=== PATIENT | male | born 1980 | race Caucasian/White ===

== ENCOUNTER 2016-08-03 06:53 | Inpatient (IN) | payer MEDICAID ==
[2016-08-03] MEDS ORDERED: PROMETHAZINE 25 MG/ML VIAL IV STA (07:35)
[2016-08-03] MEDS ORDERED: NS 1,000 ML IV ONE ×2 (07:35→10:41)
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
[2016-08-03 08:22] LABS: ALL NEG? NO
[2016-08-03 08:27] LABS: MPV 10.6 fL (7.4-10.4)
[2016-08-03 08:29] LABS: LEUKOCYTES/URINE NEG (NEGATIVE); NITRITE/URINE NEG (NEGATIVE); RBC/URINE TNTC (0-2); URINE OCCULT BLOOD 2+ (NEG/TRACE)
[2016-08-03 08:36] LABS: MDMA* *POSITIVE* (NEGATIVE); METHAMPHETAMINES *POSITIVE* (NEGATIVE)
[2016-08-03 08:37] LABS: OXYCODONE *POSITIVE* (NEGATIVE)
[2016-08-03 09:02] LABS: SEG NEUTROPHIL 48 % (45-76)
[2016-08-03 09:12] LABS: BLOOD UREA NITROGEN 8 MG/DL (9-20); CALC CORRECTED 10.6 MG/DL (8.4-10.2); CALCIUM 8.8 MG/DL (8.4-10.2); CALCULATED OSMOLALITY 273 MOs/Kg (270-290); CHLORIDE 110 mEq/L (98-107); ETOH-MGDL < 10 mg/dL; GLUCOSE 219 MG/DL (70-99); SODIUM LEVEL 139 mEq/L (137-146); TOTAL PROTEIN 7.6 G/DL (6.3-8.2)
--- NOTE | 2016-08-03 10:36 | DIRPT ---
CLINICAL DATA: Epigastric pain EXAM: US ABDOMEN LIMITED - RIGHT UPPER QUADRANT COMPARISON: 06/18/2016 FINDINGS: Gallbladder: Surgically removed Common bile duct: Diameter: 4.4 mm. Liver: Prominence of the portal triads is noted which may be related to underlying hepatitis correlation with liver function tests is recommended. No other focal abnormality is seen. IMPRESSION: Echogenic appearance to the portal triads which may be related to underlying inflammatory change of the liver. Correlation with laboratory values is recommended. No other focal abnormality is seen. Electronically Signed By: Bam Tatum M.D. On: 08/03/2016 10:33
[2016-08-03] MEDS ORDERED: HYDROmorphone 1 MG INJECTION IV ONE (10:52)
[2016-08-03] MEDS ORDERED: MORPHINE 2 MG/ML INJECTION IV PRN (11:09)
[2016-08-03] MEDS ORDERED: ALBUTEROL 0.083% 3 ML NEB NEB PRN (11:10)
[2016-08-03] MEDS ORDERED: LORAZEPAM 1 MG TAB PO PRN ×3 (11:12)
[2016-08-03] MEDS ORDERED: LORAZEPAM 2 MG/ML VIAL IV PRN ×3 (11:12)
[2016-08-03 11:21] LABS: PARTIAL THROMB. TIME 30.1 SEC (22-35); PT-INR 1.4
[2016-08-03] MEDS ORDERED: Alcohol Withdrawal Scale Orders XX SCH (12:00)
[2016-08-03] MEDS ORDERED: LORAZEPAM 1 MG TAB PO SCH (12:00)
[2016-08-03] MEDS ORDERED: DIATRIZOATE MEGLMINE/SODIUM 30 ML BOTTLE PO ONE (12:04)
--- NOTE | 2016-08-03 12:08 | HISTPHYS ---
- Chief Complaint Abdominal pain - History of Present Illness This is a 35-year-old male with a long history of drug and alcohol abuse who was being admitted to the hospital this morning due to abdominal pain and acute hepatitis. The patient tells me that he has been having abdominal pain for the last day and half, it is in the right upper quadrant, sharp and dull at the same time, without any aggravating or alleviating factors. It does not radiate. Initially the patient denies any IV drug use or any use of illicit substances, but then when I confronted him about his urine tox screen, admits that he was at a [facility] nights ago, where he took many different types of drugs. In fact, he was taken to the [facility] and [place] that evening due to accidental overdose. The patient vehemently denies use of IV drugs, as he says he does not like needles. He says he has never had pain in his abdomen like this ever before. Denies any fevers or chills, cough, shortness of breath. He has some associated nausea but no vomiting. He has been having regular bowel movements, without any blood in the stool. - Medical History Cardiac History: Reports: Hypertension. Denies: Atrial Fibrillation, Syncope GI/ History: Reports: Gastroesophageal Reflux Systemic History: Reports: Diabetes Neurological History: Denies: Seizures Psychological History: Reports: Anxiety. Denies: Depression, Substance Use Disorder - Surgical History Reports: Cholecystectomy, Other (SCROTAL SURGERY FOR "GANGRENE") - Medictions/Allergies Allergies morphine Allergy (Severe, Verified 08/03/16 08:06) Rash-Generalized tramadol Allergy (Severe, Verified 08/03/16 08:06) Rash-Generalized Penicillins Allergy (Verified 08/03/16 08:06) Anaphylaxis* Home Medications Lisinopril 40 mg PO DAILY 09/30/13 Alprazolam [Xanax] 1 mg PO TID 11/15/14 Omeprazole [Prilosec] 40 mg PO BID 11/15/14 Pregabalin [Lyrica] 300 mg PO TID 12/21/14 Buprenorphine HCl/Naloxone HCl [Suboxone SL Film (8 mg/2 mg)] 1 film SL TID Acetaminophen Ex Str Tablet [TYLENOL EXTRA STRENGTH Tablet] 1,500 mg PO .PRN PRN 01/11/17 - Family History Reports: Hypertension (Mother), Diabetes (Mother), Cancer (MGM, MGF, unknown type.), Cardiac Disorders (MGM: [place] at 43 yo.). Denies: Stroke - Social History Smoking Status: Heavy tobacco smoker (5 or more cigarettes/day or daily pipe/ cigar) Social History: Denies: Substance Use Disorder - Review of Systems Yes All systems reviewed and were negative except as marked (And as mentioned in the history of present illness above.) - Physical Exam Vital Signs: Initial Vitals Temperature 98.5 F 08/03/16 07:54 Pulse Rate 115 08/03/16 07:54 Respiratory Rate 18 08/03/16 07:54 Blood Pressure 141/87 08/03/16 07:54 Pulse Oxygen Saturation 94 08/03/16 07:54 Constitutional: Distress Oriented to: Time, Person, Place Exam: male appearing stated age, writhing in pain in a stretcher in the emergency department. - HEENT Head: Normal (normocephalic,atraumatic, trachea midline) Eye: Normal (EOMI, Sclera white) Oropharynx: Normal (moist) Nose: No Symptoms Reported (without discharge or bleeding) Respiratory: Normal - CTA (Clear to auscultation bilaterally, no wheezing,rales or rhonchi. No use of accessory muscles) Cardiovascular: Normal (RRR, no murmurs, rubs or gallops) - GI GI Addtional Findings: Abdomen is soft, with voluntary guarding. He has normoactive bowel sounds. Tender to palpation in the right upper quadrant. - Musculoskeletal Extremities: Normal (normal tone, no cyanosis or edema) - Integumentary Skin: Normal (no rashes or lesions) - Focused CV Perfusion Exam Vital Signs: Last Vital Signs Temp 98.5 F 08/03/16 07:54 Pulse 94 08/03/16 11:38 Resp 18 08/03/16 11:38 BP 141/89 08/03/16 11:38 Pulse Ox 97 08/03/16 11:38 - Lab Results Laboratory Tests 08/03/16 08/03/16 08/03/16 08:01 08:10 08:10 WBC 5.9 Hgb 15.6 Hct 47.2 INR Potassium 4.6 Chloride 110 H BUN 8 L Creatinine 0.80 Total Bilirubin 5.1 H AST 835 H ALT 1110 H Alkaline Phosphatase 228 H Lipase 41 Ur Oxycodone Screen *positive* H Acetaminophen Ur Amphetamines Screen *positive* H U Methamphetamines Scrn *positive* H Urine MDMA Screen *positive* H U Benzodiazepines Scrn *positive* H 08/03/16 08/03/16 08:10 11:20 WBC Hgb Hct INR 1.4 Potassium Chloride BUN Creatinine Total Bilirubin AST ALT Alkaline Phosphatase Lipase Ur Oxycodone Screen Acetaminophen < 10.0 Ur Amphetamines Screen U Methamphetamines Scrn Urine MDMA Screen U Benzodiazepines Scrn - Diagnostic Findings Gallbladder ultrasound done in the emergency department today: Echogenic appearance to the portal triads which may be related to underlying inflammatory change of the liver. Correlation with laboratory values is recommended. No other focal abnormality is seen. - Assessment (1) Acute hepatitis B17.9 - ACUTE VIRAL HEPATITIS, UNSPECIFIED Acute Etiology is unclear. Tylenol level is negative. Not clearly alcoholic hepatitis pattern. Differential includes infectious hepatitis (acute hepatitis panel pending), hypotension, drug abuse, infarction or mass. Note the head CT scan of the abdomen in May without any concerning findings. Will place on CIWA protocol with p.r.n. Ativan in case of withdrawal, will provide aggressive hydration and supportive care. (2) Thrombocytopenia D69.6 - THROMBOCYTOPENIA, UNSPECIFIED Acute (3) Abdominal pain, right upper quadrant R10.11 - RIGHT UPPER QUADRANT PAIN Acute Patient complaining of severe right upper abdominal pain. Gallbladder ultrasound shows hepatic triad with signs of inflammation. No obstruction or evidence of mass lesion. Likely due to his acute hepatitis. Note the patient had laparoscopic cholecystectomy here in 2014. Will obtain CT scan of the abdomen pelvis with IV and p.o. contrast to rule out mass lesion, infectious process, intestinal obstruction, etc. (4) DM w/o complication type II Acute Patient does not seem to be a currently on any oral diabetes medications. Check fingerstick blood glucose q.a.c. and HS, check hemoglobin A1c and add sliding scale insulin as well. (5) GERD (gastroesophageal reflux disease) K21.9 - GASTRO-ESOPHAGEAL REFLUX DISEASE WITHOUT ESOPHAGITIS Acute Continue home PPI. (6) Suicidal ideations R45.851 - SUICIDAL IDEATIONS Acute Patient with a prior history of suicidal ideations, and admitted overdose a couple of days ago, though he claims that this was unintentional. Patient today denies clearly any attempts at self- harm. Denies any suicidal or homicidal ideation. Case Care Discussed with: Patient, Nursing Staff Total Time: 59
[2016-08-03] MEDS: FOLIC ACID 1 MG, THIAMINE 100 MG, VITAMINS, MULTIPLE 10 ML in NS 1,000 ML IV SCH ×4 (12:19)
[2016-08-03] MEDS ORDERED: GLUCOSE (ORAL GEL) 15 GM TUBE PO PRN (12:24)
[2016-08-03] MEDS ORDERED: GLUCAGON 1 MG VIAL SQ PRN (12:24)
[2016-08-03] MEDS ORDERED: DEXTROSE 25 GM/50 ML PFS IV PRN (12:24)
[2016-08-03] MEDS: ONDANSETRON HCL 4 MG/2 ML VIAL IV PRN ×2 (12:30→22:33)
[2016-08-03] MEDS: LORAZEPAM 1 MG TAB PO SCH ×2 (12:32→18:12)
[2016-08-03] MEDS ORDERED: Pharmacy Review for Metformin - IV Contrast Given SCH ×2 (13:00)
[2016-08-03 13:43] VITALS: BMI 37.7
[2016-08-03] MEDS ORDERED: Vaccine Screening Complete SCH (14:00)
[2016-08-03] MEDS: OXYCODONE HCL 5 MG TABLET PO PRN ×2 (14:43→20:17)
--- NOTE | 2016-08-03 15:11 | DIRPT ---
CLINICAL DATA: Right upper quadrant abdominal pain. Nausea. Bloating. Elevated LFTs. EXAM: CT ABDOMEN AND PELVIS WITH CONTRAST TECHNIQUE: Multidetector CT imaging of the abdomen and pelvis was performed using the standard protocol following bolus administration of intravenous contrast. CONTRAST: 80 cc Isovue 370 COMPARISON: 06/18/2016 FINDINGS: Lower chest: No pulmonary nodules, pleural effusions, or infiltrates. Heart size is normal. No imaged pericardial effusion or significant coronary artery calcifications. Upper abdomen: Enlarged caudate lobe of the liver. There is scalloped anterior margin of the left hepatic lobe. There is hyperdense appearance of the posterior aspect of the left hepatic lobe, likely indicating perfusion abnormality. A mass would be difficult to exclude. The spleen is enlarged without focal lesion. Pancreas has a normal appearance. The gallbladder is surgically absent. Trace pneumobilia at the level of the diaphragm. The kidneys are normal in appearance. No hydronephrosis. Adrenal glands are normal. Gastrointestinal tract: The stomach and small bowel loops are normal in appearance. Colonic loops are normal in appearance. The appendix is not well seen. Pelvis: Urinary bladder, seminal vesicles, and prostate gland have a normal appearance. No free pelvic fluid. Retroperitoneum: There numerous enlarged nodes within the upper abdomen. Portacaval lymph node is 2.8 x 4.9 cm. Other periportal lymph nodes are 1.6 x 2.4 cm, 2.0 x 1.9 cm, 1.5 x 3.6 cm. Small gastrohepatic ligaments measure less than 1 cm but are numerous. Small paraesophageal lymph node is 1.2 cm. No evidence for aortic aneurysm. Abdominal wall: Left gynecomastia noted. Osseous structures: No suspicious lytic or blastic lesions are identified. IMPRESSION: 1. Cirrhotic morphology of the liver. 2. Hyperdense portion of the left hepatic lobe, favoring profusion abnormality over mass. Further characterization is needed. MRI liver protocol is recommended. MRI should be performed when the patient is clinically stable and able to follow breath holding instructions (usually best performed on an outpatient basis). 3. Periportal adenopathy. 4. Splenomegaly, indicating portal venous hypertension. 5. Left gynecomastia. Electronically Signed By: Nona Arredondo M.D. On: 08/03/2016 15:08
[2016-08-03] MEDS: ALPRAZOLAM 0.5 MG TAB PO SCH ×2 (15:38→22:44)
[2016-08-03] MEDS: PREGABALIN 100 MG CAP PO SCH ×2 (16:07→20:18)
[2016-08-03] MEDS: REGULAR INSULIN 100 UNITS/ML - 3 ML VIAL SQ SCH (18:11)
[2016-08-03] MEDS: PANTOPRAZOLE 40 MG TAB PO SCH (18:13)
[2016-08-03] MEDS: ENOXAPARIN 40 MG/0.4 ML PFS SQ SCH (18:13)
[2016-08-04] MEDS: NS 1,000 ML IV SCH ×3 (00:53→22:34)
[2016-08-04] MEDS: REGULAR INSULIN 100 UNITS/ML - 3 ML VIAL SQ SCH ×5 (00:54→21:33)
[2016-08-04] MEDS: LORAZEPAM 1 MG TAB PO SCH ×4 (00:55→17:07)
[2016-08-04] MEDS: OXYCODONE HCL 5 MG TABLET PO PRN ×3 (02:31→21:00)
[2016-08-04 05:25] LABS: MPV 10.4 fL (7.4-10.4)
[2016-08-04 05:35] LABS: BLOOD UREA NITROGEN 4 MG/DL (9-20); CALC CORRECTED 9.4 MG/DL (8.4-10.2); CALCIUM 7.9 MG/DL (8.4-10.2); CALCULATED OSMOLALITY 259 MOs/Kg (270-290); CHLORIDE 99 mEq/L (98-107); GLUCOSE 138 MG/DL (70-99); SODIUM LEVEL 135 mEq/L (137-146); TOTAL PROTEIN 6.1 G/DL (6.3-8.2)
[2016-08-04] MEDS: PREGABALIN 100 MG CAP PO SCH ×3 (05:38→21:04)
[2016-08-04] MEDS: PANTOPRAZOLE 40 MG TAB PO SCH ×2 (05:38→17:07)
[2016-08-04] MEDS: ALPRAZOLAM 0.5 MG TAB PO SCH ×3 (05:41→21:04)
[2016-08-04] MEDS ORDERED: PNEUMOCOCCAL 0.5 ML VIAL IM ONE (08:00)
[2016-08-04 08:48] LABS: HEPATITIS B SURFACE AB(IMMUNE) Non Reactive (.)
[2016-08-04] MEDS ORDERED: LISINOPRIL 40 MG TAB PO SCH (09:00)
--- NOTE | 2016-08-04 09:03 | GENMEDPROG ---
Chief Complaint: abdominal pain, acute hepatitis, Nausea & vomiting Currently: Reports: WATTS, Tobacco Use/Hx, Alcohol Hx, Reflux Sx, Abdominal Pain, Ambulating. Denies: Nausea and Vomiting DVT Prophylaxis: Yes - Physical Examination Vital Signs and I&O: Last Vital Signs Temp 98.3 F 08/04/16 07:35 Pulse 97 08/04/16 07:35 Resp 20 08/04/16 07:35 BP 119/67 08/04/16 07:35 Pulse Ox 95 08/04/16 07:35 Oxygen Pulse Oxygen Saturation 95 O2 Device Room Air Oxygen Flow Rate Fraction of Inspired Oxygen ( FIO2) Intake & Output 08/01/16 08/02/16 08/03/16 08/04/16 23:59 23:59 23:59 23:59 Intake Total 2295 1033 Output Total 800 Balance 2295 233 Patient's weight 122.583 kg 124.693 kg General: Alert, Oriented x3, Cooperative, Mild distress, Obese HEENT: Normal, PERRLA, EOMI, Anicteric Sclera, Mucous membr. moist/pink Neck: Full range of motion, Normal Trachea alignment, Normal inspection, No Masses palpable, No Thyromegaly palpable Lymphatics: Normal Respiratory: Normal - CTA (Clear to auscultation bilaterally, no wheezing,rales or rhonchi. No use of accessory muscles) Cardiovascular: Regular rate and rhythm, Normal S1, Normal S2 GI: Normal bowel sounds, Soft, No masses, Obese Extremities/Musculoskeletal: Normal pulses. negative: Edema Skin: Warm,Dry and Intact, Rash, Excoriation Neurological: Normal speech, Strength at 5/5 X4 ext, Normal tone, Cranial nerves 3-12 NL Psych/Mental Status: Agitated Lab/DI/Studies Reviewed: HCV Ab+ Laboratory Tests 08/04/16 08/04/16 04:30 05:41 Sodium 135 L Potassium 3.9 Chloride 99 Carbon Dioxide 30 Anion Gap 10 BUN 4 L Creatinine 0.60 L Estimated GFR (MDRD) > 60 Glucose 138 H POC Capillary Glucose 102 H Calculated Osmolality 259 L Corrected Calcium 9.4 Laboratory Tests 08/04/16 08/04/16 04:30 04:30 WBC 4.2 Hgb 13.4 L D Hct 39.4 L Plt Count 58 L Total Bilirubin 4.2 H AST 737 H ALT 833 H Alkaline Phosphatase 191 H Total Protein 6.1 L Albumin 2.5 L - Assessment (1) Acute hepatitis Acute B17.9 - ACUTE VIRAL HEPATITIS, UNSPECIFIED Comment/Plan: Etiology is unclear. Tylenol level is negative. Not clearly alcoholic hepatitis pattern. Differential includes infectious hepatitis (acute hepatitis panel pending), hypotension, drug abuse, infarction or mass. Note the head CT scan of the abdomen in May without any concerning findings. Will place on CIWA protocol with p.r.n. Ativan in case of withdrawal, will provide aggressive hydration and supportive care. (2) Abdominal pain, right upper quadrant Acute R10.11 - RIGHT UPPER QUADRANT PAIN Comment/Plan: Patient complaining of severe right upper abdominal pain. Gallbladder ultrasound shows hepatic triad with signs of inflammation. No obstruction or evidence of mass lesion. Likely due to his acute hepatitis. Note the patient had laparoscopic cholecystectomy here in 2014. Will obtain CT scan of the abdomen pelvis with IV and p.o. contrast to rule out mass lesion, infectious process, intestinal obstruction, etc. (3) Thrombocytopenia Acute D69.6 - THROMBOCYTOPENIA, UNSPECIFIED (4) DM w/o complication type II Chronic Qualifiers: Diabetes mellitus intermodal customer service insulin use: without detention use Qualified Code(s): E11.9 - Type 2 diabetes mellitus without complications Comment/Plan: Patient does not seem to be a currently on any oral diabetes medications. Check fingerstick blood glucose q.a.c. and HS, check hemoglobin A1c and add sliding scale insulin as well.
[2016-08-04] MEDS: FOLIC ACID 1 MG, THIAMINE 100 MG, VITAMINS, MULTIPLE 10 ML in NS 1,000 ML IV SCH ×4 (12:10)
[2016-08-04] MEDS ORDERED: HYDROmorphone 1 MG INJECTION IV ONE (14:46)
[2016-08-04] MEDS: ENOXAPARIN 40 MG/0.4 ML PFS SQ SCH (17:07)
[2016-08-04] MEDS: HYDROmorphone 1 MG INJECTION IV PRN ×2 (18:18→22:33)
[2016-08-05] MEDS: LORAZEPAM 1 MG TAB PO SCH ×4 (00:04→17:13)
[2016-08-05] MEDS: OXYCODONE HCL 5 MG TABLET PO PRN ×4 (00:05→17:13)
[2016-08-05] MEDS: NICOTINE 21 MG PATCH TOP SCH (01:13)
[2016-08-05] MEDS: ALPRAZOLAM 0.5 MG TAB PO SCH ×3 (05:11→20:45)
[2016-08-05] MEDS: PREGABALIN 100 MG CAP PO SCH ×3 (05:11→20:45)
[2016-08-05] MEDS: PANTOPRAZOLE 40 MG TAB PO SCH ×2 (05:12→17:13)
[2016-08-05] MEDS: REGULAR INSULIN 100 UNITS/ML - 3 ML VIAL SQ SCH ×4 (05:56→22:54)
[2016-08-05 06:08] LABS: AUTOMATED BASOPHIL 1.2 % (0-2); AUTOMATED EOSINOPHIL 8.7 % (0-5); AUTOMATED LYMPH 38.8 % (17-44); AUTOMATED MONOCYTE 9.9 % (3-10); AUTOMATED NEUTROPHIL 41.4 % (45-76); MPV 10.7 fL (7.4-10.4)
[2016-08-05] MEDS: HYDROmorphone 1 MG INJECTION IV PRN ×3 (06:20→15:01)
[2016-08-05 06:47] LABS: BLOOD UREA NITROGEN 6 MG/DL (9-20); CALC CORRECTED 9.1 MG/DL (8.4-10.2); CALCULATED OSMOLALITY 261 MOs/Kg (270-290); CHLORIDE 96 mEq/L (98-107); GLUCOSE 125 MG/DL (70-99); SODIUM LEVEL 136 mEq/L (137-146); TOTAL PROTEIN 6.6 G/DL (6.3-8.2)
[2016-08-05] MEDS ORDERED: CEFOXITIN 2 GM in D5W 100 ML IV SCH ×2 (10:00→18:00)
[2016-08-05] MEDS: METOPROLOL TARTRATE 25 MG TAB PO SCH ×2 (10:20→20:38)
[2016-08-05] MEDS: NS 1,000 ML IV SCH ×2 (11:28→20:35)
[2016-08-05] MEDS: FOLIC ACID 1 MG, THIAMINE 100 MG, VITAMINS, MULTIPLE 10 ML in NS 1,000 ML IV SCH ×4 (11:28)
--- NOTE | 2016-08-05 16:14 | GENMEDPROG ---
Chief Complaint: viral hepatitis, t-penia, RUQ pain, DM-2 Subjective Note: Patient frequently requests pain medication, even when awakened from sleep and quite lethargic. Very dramatic. Current Medication List: Reviewed Currently: Reports: WATTS, Tobacco Use/Hx, Alcohol Hx, Reflux Sx, Abdominal Pain, Ambulating. Denies: Nausea and Vomiting DVT Prophylaxis: Yes - Physical Examination Vital Signs and I&O: Last Vital Signs Temp 98.9 F 08/05/16 06:45 Pulse 90 08/05/16 08:27 Resp 20 08/05/16 06:45 BP 145/82 08/05/16 08:27 Pulse Ox 97 08/05/16 06:45 Oxygen Pulse Oxygen Saturation 97 O2 Device Room Air Oxygen Flow Rate Fraction of Inspired Oxygen ( FIO2) Intake & Output 08/02/16 08/03/16 08/04/16 08/05/16 23:59 23:59 23:59 23:59 Intake Total 2295 9954 1755 Output Total 1400 850 Balance 2295 1984 905 Patient's weight 122.583 kg 124.693 kg 124.647 kg General: Alert, Oriented x3, Cooperative, Mild distress, Obese HEENT: Normal, PERRLA, EOMI, Anicteric Sclera, Mucous membr. moist/pink Neck: Full range of motion, Normal Trachea alignment, Normal inspection, No Masses palpable, No Thyromegaly palpable Lymphatics: Normal Respiratory: Normal - CTA (Clear to auscultation bilaterally, no wheezing,rales or rhonchi. No use of accessory muscles) Cardiovascular: Regular rate and rhythm, Normal S1, Normal S2 GI: Normal bowel sounds, Soft, No masses, Obese Extremities/Musculoskeletal: Normal pulses. negative: Edema Skin: Warm,Dry and Intact, Rash, Excoriation Neurological: Normal speech, Strength at 5/5 X4 ext, Normal tone, Cranial nerves 3-12 NL Psych/Mental Status: Agitated Lab/DI/Studies Reviewed: Laboratory Tests 08/05/16 08/05/16 08/05/16 05:10 05:10 09:00 WBC 5.5 Hgb 13.8 L Hct 40.2 L Plt Count 65 L Neut % (Auto) 41.4 L Lymph % (Auto) 38.8 Barry % (Auto) 9.9 Sodium 136 L Potassium 4.7 Chloride 96 L Carbon Dioxide 32 Anion Gap 13 BUN 6 L Creatinine 0.70 Estimated GFR (MDRD) > 60 Glucose 125 H POC Capillary Glucose Calculated Osmolality 261 L Corrected Calcium 9.1 Total Bilirubin 3.9 H AST 529 H ALT 653 H Alkaline Phosphatase 221 H Ammonia Total Protein 6.6 Albumin 2.9 L Acetaminophen < 10.0 08/05/16 08/05/16 08/05/16 09:00 11:40 16:39 WBC Hgb Hct Plt Count Neut % (Auto) Lymph % (Auto) Barry % (Auto) Sodium Potassium Chloride Carbon Dioxide Anion Gap BUN Creatinine Estimated GFR (MDRD) Glucose POC Capillary Glucose 152 H 178 H Calculated Osmolality Corrected Calcium Total Bilirubin AST ALT Alkaline Phosphatase Ammonia 27.0 Total Protein Albumin Acetaminophen 08/05/16 21:18 WBC Hgb Hct Plt Count Neut % (Auto) Lymph % (Auto) Barry % (Auto) Sodium Potassium Chloride Carbon Dioxide Anion Gap BUN Creatinine Estimated GFR (MDRD) Glucose POC Capillary Glucose 173 H Calculated Osmolality Corrected Calcium Total Bilirubin AST ALT Alkaline Phosphatase Ammonia Total Protein Albumin Acetaminophen - Assessment (1) Acute hepatitis Acute B17.9 - ACUTE VIRAL HEPATITIS, UNSPECIFIED Comment/Plan: Etiology is unclear. Tylenol level is negative. Not clearly alcoholic hepatitis pattern. Differential includes infectious hepatitis (acute hepatitis panel pending), hypotension, drug abuse, infarction or mass. Note the head CT scan of the abdomen in May without any concerning findings. Will place on CIWA protocol with p.r.n. Ativan in case of withdrawal, will provide aggressive hydration and supportive care. (2) Abdominal pain, right upper quadrant Acute R10.11 - RIGHT UPPER QUADRANT PAIN Comment/Plan: Patient complaining of severe right upper abdominal pain. Gallbladder ultrasound shows hepatic triad with signs of inflammation. No obstruction or evidence of mass lesion. Likely due to his acute hepatitis. Note the patient had laparoscopic cholecystectomy here in 2014. Will obtain CT scan of the abdomen pelvis with IV and p.o. contrast to rule out mass lesion, infectious process, intestinal obstruction, etc. (3) Thrombocytopenia Acute D69.6 - THROMBOCYTOPENIA, UNSPECIFIED (4) DM w/o complication type II Chronic Qualifiers: Diabetes mellitus intermission coordinator insulin use: without prison use Qualified Code(s): E11.9 - Type 2 diabetes mellitus without complications Comment/Plan: Patient does not seem to be a currently on any oral diabetes medications. Check fingerstick blood glucose q.a.c. and HS, check hemoglobin A1c and add sliding scale insulin as well. Case Care Discussed with: Patient, Consultants, Nursing Staff, Resource Management Education/Counseling Given To: Patient Education/Counseling Given Regarding: Diagnosis, Treatment, Prognosis Total Time: 25 min Critical Care: No Couseling Time (>50% in counseling/coordination): Yes Code: 98043 (12+)
[2016-08-05] MEDS: CEFOXITIN 2 GM in D5W 100 ML IV SCH (17:13)
[2016-08-05] MEDS: ENOXAPARIN 40 MG/0.4 ML PFS SQ SCH (17:13)
--- NOTE | 2016-08-05 17:18 | PCM.CONSGI ---
Consult Date: 08/05/16 Consult Requesting Physician: Joann Starr Consult Reason: Abdominal Pain, Abnormal Liver Function - History of Present Illness 35-year-old white male with longstanding history of alcohol abuse, cocaine and polysubstance abuse (denies IV drugs), tattoos admitted with acute on chronic abdominal pain. He underwent CT scan of the abdomen and pelvis which showed evidence of liver cirrhosis with questionable abnormality in the left lobe of the liver. It was recommended to get MRI of the liver performed as an outpatient. The CT scan of the abdomen pelvis did show evidence of splenomegaly, no ascites or any intra-abdominal varices. Patient had positive urine tox screen as below. From the chart: "Initially the patient denies any IV drug use or any use of illicit substances, but then when I confronted him about his urine tox screen, admits that he was at a [employer] [place] nights ago, where he took many different types of drugs. In fact, he was taken to the [facility] and [place] that evening due to accidental overdose. The patient vehemently denies use of IV drugs, as he says he does not like needles. He says he has never had pain in his abdomen like this ever before. Denies any fevers or chills, cough, shortness of breath. He has some associated nausea but no vomiting. He has been having regular bowel movements, without any blood in the stool." To my exam he was little confused. He was sleeping and snoring quite loudly. When he woke up, he did not have any abdominal pain. Then during the history taking, he again started having abdominal pain which was more subjective. He wanted me to give him pain medications. - Past Medical History Cardiac History: Reports: Hypertension Respiratory History: Reports: Other (Sleep apnea) GI/ History: Reports: GERD, Other (Obesity) Systemic History: Reports: Diabetes Psychological History: Reports: Anxiety, Depression, Substance Use Disorder (hx of dug and alcohol abuse) - Surgical History Past Surgical History: Reports: Cholecystectomy. Denies: Back Surgery - Family History Family History: Reports: Diabetes (Mother), Cardiac Disorders (MGM: MS at 44 yo. ), Cancer (MGM, MGF, unknown type.), Hepatitis, Hypertension (Mother). Denies: Seizures, Stroke Family Medical History Additional Findings: Mother had hepatitis C and liver cirrhosis - Allergies Allergies morphine Allergy (Severe, Verified 08/03/16 13:28) Rash-Generalized tramadol Allergy (Severe, Verified 08/03/16 13:28) Rash-Generalized Penicillins Allergy (Verified 08/03/16 13:28) Anaphylaxis* - Medications Home Medications Lisinopril 40 mg PO DAILY 09/30/13 Alprazolam [Xanax] 1 mg PO TID 11/15/14 Omeprazole [Prilosec] 40 mg PO BID 11/15/14 Pregabalin [Lyrica] 300 mg PO TID 12/21/14 Buprenorphine HCl/Naloxone HCl [Suboxone SL Film (8 mg/2 mg)] 1 film SL TID Acetaminophen Ex Str Tablet [TYLENOL EXTRA STRENGTH Tablet] 1,500 mg PO .PRN PRN 08/03/16 - Social History Smoking Status: Heavy tobacco smoker (5 or more cigarettes/day or daily pipe/ cigar) Social History: Reports: Substance Use Disorder (hx of dug and alcohol abuse) - Review of Systems Constitutional: Other (No night sweats.). negative: Chills, Fever, Weight loss (Recent) Mouth: negative: Pain Cardiovascular: negative: Chest Pain, Orthopnea, PND Gastrointestinal: Other (Positive for jaundice) Genitourinary: Other (Denies polyuria.). negative: Dysuria Neurological: Other (Denies loss of consciousness.). negative: Seizure Allergic/Immunologic: negative: Hives, Itching Hematologic: negative: Easy Bruising - Exam Vital Signs: Temperature: 98.9 F (08/05/16 06:45) HR: 90 (08/05/16 08:27) RR: 20 (08/05/16 06:45) BP: 145/82 (08/05/16 08:27) Pulse Ox: 97 (08/05/16 06:45) General: Alert, Oriented x3, Cooperative, No acute distress HEENT: Normal, Icteric Sclera, Other (No Jaundice). negative: Pallor Cardiovascular: Normal S1, Normal S2, Other (No S3 or S4.). negative: No murmurs Gastrointestinal: Soft, Bowel Sounds (normal), Other (No ascites.). negative: Tender, Guarding, Rigid, Hepatosplenomegaly Extremities: Normal pulses. negative: Swelling, Edema Skin: Warm,Dry and Intact Neurological: Normal speech, Other (No focal neurologic deficits.) Psych/Mental Status: Normal Affect, Cooperative - Labs Result Diagrams: 08/05/16 05:10 08/05/16 05:10 Laboratory Tests 08/03/16 08/03/16 08/03/16 08:01 08:10 08:10 WBC 5.9 Hgb 15.6 MCV 90 Plt Count 80 L PT 14.4 H INR 1.4 APTT 30.1 Sodium Potassium Chloride Carbon Dioxide Anion Gap BUN Creatinine Estimated GFR (MDRD) Glucose Calculated Osmolality Calcium Corrected Calcium Total Bilirubin AST ALT Alkaline Phosphatase Ammonia Total Protein Albumin Ur Oxycodone Screen *positive* H Acetaminophen Ur Amphetamines Screen *positive* H U Methamphetamines Scrn *positive* H Urine MDMA Screen *positive* H U Benzodiazepines Scrn *positive* H Hep Bs Antibody Hepatitis C Antibody 08/03/16 08/03/16 08/04/16 11:20 11:20 04:30 WBC 4.2 Hgb 13.4 L D MCV 89 Plt Count 58 L PT INR APTT Sodium Potassium Chloride Carbon Dioxide Anion Gap BUN Creatinine Estimated GFR (MDRD) Glucose Calculated Osmolality Calcium Corrected Calcium Total Bilirubin AST ALT Alkaline Phosphatase Ammonia Total Protein Albumin Ur Oxycodone Screen Acetaminophen < 10.0 Ur Amphetamines Screen U Methamphetamines Scrn Urine MDMA Screen U Benzodiazepines Scrn Hep Bs Antibody Non reactive Hepatitis C Antibody 2.7 H 08/04/16 08/05/16 08/05/16 04:30 05:10 05:10 WBC 5.5 Hgb 13.8 L MCV 88 Plt Count 65 L PT INR APTT Sodium 135 L 136 L Potassium 3.9 4.7 Chloride 99 96 L Carbon Dioxide 30 32 Anion Gap 10 13 BUN 4 L 6 L Creatinine 0.60 L 0.70 Estimated GFR (MDRD) > 60 Glucose 138 H 125 H Calculated Osmolality 261 L Calcium 8.0 L Corrected Calcium 9.1 Total Bilirubin 4.2 H 3.9 H AST 737 H 529 H ALT 833 H 653 H Alkaline Phosphatase 191 H 221 H Ammonia Total Protein 6.1 L 6.6 Albumin 2.5 L 2.9 L Ur Oxycodone Screen Acetaminophen Ur Amphetamines Screen U Methamphetamines Scrn Urine MDMA Screen U Benzodiazepines Scrn Hep Bs Antibody Hepatitis C Antibody 08/05/16 09:00 WBC Hgb MCV Plt Count PT INR APTT Sodium Potassium Chloride Carbon Dioxide Anion Gap BUN Creatinine Estimated GFR (MDRD) Glucose Calculated Osmolality Calcium Corrected Calcium Total Bilirubin AST ALT Alkaline Phosphatase Ammonia 27.0 Total Protein Albumin Ur Oxycodone Screen Acetaminophen Ur Amphetamines Screen U Methamphetamines Scrn Urine MDMA Screen U Benzodiazepines Scrn Hep Bs Antibody Hepatitis C Antibody Exam(s): [id number] CT/CT ABD-PELV W/IV CM CLINICAL DATA: Right upper quadrant abdominal pain. Nausea. Bloating. Elevated LFTs. EXAM: CT ABDOMEN AND PELVIS WITH CONTRAST TECHNIQUE: Multidetector CT imaging of the abdomen and pelvis was performed using the standard protocol following bolus administration of intravenous contrast. CONTRAST: 80 cc Isovue 370 COMPARISON: 06/18/2016 FINDINGS: Lower chest: No pulmonary nodules, pleural effusions, or infiltrates. Heart size is normal. No imaged pericardial effusion or significant coronary artery calcifications. Upper abdomen: Enlarged caudate lobe of the liver. There is scalloped anterior margin of the left hepatic lobe. There is hyperdense appearance of the posterior aspect of the left hepatic lobe, likely indicating perfusion abnormality. A mass would be difficult to exclude. The spleen is enlarged without focal lesion. Pancreas has a normal appearance. The gallbladder is surgically absent. Trace pneumobilia at the level of the diaphragm. The kidneys are normal in appearance. No hydronephrosis. Adrenal glands are normal. Gastrointestinal tract: The stomach and small bowel loops are normal in appearance. Colonic loops are normal in appearance. The appendix is not well seen. Pelvis: Urinary bladder, seminal vesicles, and prostate gland have a normal appearance. No free pelvic fluid. Retroperitoneum: There numerous enlarged nodes within the upper abdomen. Portacaval lymph node is 2.8 x 4.9 cm. Other periportal lymph nodes are 1.6 x 2.4 cm, 2.0 x 1.9 cm, 1.5 x 3.6 cm. Small gastrohepatic ligaments measure less than 1 cm but are numerous. Small paraesophageal lymph node is 1.2 cm. No evidence for aortic aneurysm. Abdominal wall: Left gynecomastia noted. Osseous structures: No suspicious lytic or blastic lesions are identified. IMPRESSION: 1. Cirrhotic morphology of the liver. 2. Hyperdense portion of the left hepatic lobe, favoring profusion abnormality over mass. Further characterization is needed. MRI liver protocol is recommended. MRI should be performed when the patient is clinically stable and able to follow breath holding instructions (usually best performed on an outpatient basis). 3. Periportal adenopathy. 4. Splenomegaly, indicating portal venous hypertension. 5. Left gynecomastia. - Assessment and Plan (1) Liver cirrhosis, alcoholic Acute K70.30 - ALCOHOLIC CIRRHOSIS OF LIVER WITHOUT ASCITES Comment: Due to alcohol abuse, possibly associated hepatitis C, uncontrolled diabetes, obesity. This is complicated by portal hypertension with splenomegaly, hypersplenism, coagulopathy. There is no definite evidence of ascites on the CT. CURRENTLY ACUTE ON CHRONIC LIVER DISEASE LIKELY DUE TO ALCOHOL BINGEING. His albumin is 2.9. He is also jaundiced (2) Hepatic encephalopathy Acute K72.90 - HEPATIC FAILURE, UNSPECIFIED WITHOUT COMA (3) DM w/o complication type II Chronic without intermediate designer use E11.9 - Type 2 diabetes mellitus without complications (4) Obstructive sleep apnea Suspected G47.33 - OBSTRUCTIVE SLEEP APNEA (ADULT) (PEDIATRIC) (5) Chronic abdominal pain Acute R10.9 - UNSPECIFIED ABDOMINAL PAIN; G89.29 - OTHER CHRONIC PAIN Comment: No definite etiology. His abdominal examination was unremarkable except for hepatomegaly. CT scan of the abdomen pelvis was unremarkable for etiology of abdominal pain. During my examination, when the patient was distracted he did not have any significant abdominal pain or tenderness. I do believe that there is some degree of narcotic seeking behavior. I have reviewed the CT scan. I have also reviewed his urine tox screen. Recommendations: 1. stop drinking all alcohol. 2. START LACTULOSE 30 CC P.O. B.I.D. ALSO START RIFAXIMIN 550 MG P.O. B.I.D. 3. HE WOULD NEED MRI OF THE LIVER AN OUTPATIENT GIVEN THAT HE HAS ABNORMALITIES IN THE LEFT LOBE OF THE LIVER. WE NEED TO RULE OUT HEPATOMA. 4. CHECK HEPATITIS C QUANTIPLEX AND GENOTYPE, AFP. 5. WOULD RECOMMEND TO HOLD OFF ON ANY NARCOTICS THESE MAY MAKE HEPATIC ENCEPHALOPATHY WORSE. ALSO I BELIEVE HE WILL GO THROUGH WITHDRAWAL. HE WOULD NEED A REFERRAL TO [facility] WITH LIVER TRANSPLANT CAPABILITIES IF HE DEMONSTRATES NO ALCOHOL OR DRUG ABUSE FOR AT LEAST 3-6 MONTHS. 6. IF HE CONTINUES TO ABUSE ALCOHOL AND DRUGS, HE HAS A VERY POOR LIKELY FATAL PROGNOSIS. 7. Need to follow up as an outpatient in the GI clinic to set up for MRI of the liver as recommended by Radiology.
[2016-08-05] MEDS: LACTULOSE 20 GM/30 ML ORAL SOLN PO SCH (20:37)
[2016-08-05] MEDS: RIFAXIMIN 550 MG TAB PO SCH (20:38)
[2016-08-06] MEDS: LORAZEPAM 1 MG TAB PO SCH ×2 (00:56→04:51)
[2016-08-06] MEDS: CEFOXITIN 2 GM in D5W 100 ML IV SCH ×3 (00:57→11:07)
[2016-08-06] MEDS: NICOTINE 21 MG PATCH TOP SCH (01:00)
[2016-08-06] MEDS: HYDROmorphone 1 MG INJECTION IV PRN (04:41)
[2016-08-06] MEDS: PREGABALIN 100 MG CAP PO SCH ×2 (04:51→13:37)
[2016-08-06] MEDS: ALPRAZOLAM 0.5 MG TAB PO SCH ×2 (04:51→13:36)
[2016-08-06] MEDS: PANTOPRAZOLE 40 MG TAB PO SCH (04:52)
[2016-08-06] MEDS: REGULAR INSULIN 100 UNITS/ML - 3 ML VIAL SQ SCH ×3 (05:31→17:26)
[2016-08-06] MEDS: OXYCODONE HCL 5 MG TABLET PO PRN ×2 (07:57→12:08)
[2016-08-06] MEDS: LACTULOSE 20 GM/30 ML ORAL SOLN PO SCH (08:00)
[2016-08-06] MEDS: RIFAXIMIN 550 MG TAB PO SCH (08:00)
[2016-08-06] MEDS: METOPROLOL TARTRATE 25 MG TAB PO SCH (08:05)
[2016-08-06 09:25] LABS: MPV 10.7 fL (7.4-10.4)
[2016-08-06 09:29] LABS: BLOOD UREA NITROGEN 6 MG/DL (9-20); CALC CORRECTED 9.2 MG/DL (8.4-10.2); CALCIUM 8.2 MG/DL (8.4-10.2); CALCULATED OSMOLALITY 264 MOs/Kg (270-290); CHLORIDE 99 mEq/L (98-107); GLUCOSE 274 MG/DL (70-99); SODIUM LEVEL 133 mEq/L (137-146); TOTAL PROTEIN 6.7 G/DL (6.3-8.2)
--- NOTE | 2016-08-06 09:55 | GENMEDPROG ---
Chief Complaint: acute hepatitis, N & V, abdominal pain, drug abuse, HCV, DM-2 Currently: Reports: WATTS, Tobacco Use/Hx, Alcohol Hx, Reflux Sx, Abdominal Pain, Ambulating. Denies: Nausea and Vomiting DVT Prophylaxis: Yes - Physical Examination Vital Signs and I&O: Last Vital Signs Temp 99.9 F 08/06/16 08:58 Pulse 87 08/06/16 08:58 Resp 20 08/06/16 08:58 BP 141/76 08/06/16 08:58 Pulse Ox 97 08/06/16 08:58 Oxygen Pulse Oxygen Saturation 97 O2 Device Room Air Oxygen Flow Rate Fraction of Inspired Oxygen ( FIO2) Intake & Output 08/03/16 08/04/16 08/05/16 08/06/16 23:59 23:59 23:59 23:59 Intake Total 2295 3384 2585 1203 Output Total 1400 4050 1500 Balance 2295 3100 -0511 -010 Patient's weight 122.583 kg 124.693 kg 124.647 kg 125.248 kg General: Alert, Oriented x3, Cooperative, Mild distress, Obese HEENT: Normal, PERRLA, EOMI, Anicteric Sclera, Mucous membr. moist/pink Neck: Full range of motion, Normal Trachea alignment, Normal inspection, No Masses palpable, No Thyromegaly palpable Lymphatics: Normal Respiratory: Normal - CTA (Clear to auscultation bilaterally, no wheezing,rales or rhonchi. No use of accessory muscles) Cardiovascular: Regular rate and rhythm, Normal S1, Normal S2 GI: Normal bowel sounds, Soft, No masses, Obese Extremities/Musculoskeletal: Normal pulses. negative: Edema Skin: Warm,Dry and Intact, Rash, Excoriation Neurological: Normal speech, Strength at 5/5 X4 ext, Normal tone, Cranial nerves 3-12 NL Psych/Mental Status: Agitated - Assessment (1) Acute hepatitis Acute B17.9 - ACUTE VIRAL HEPATITIS, UNSPECIFIED Comment/Plan: Etiology is unclear. Tylenol level is negative. Not clearly alcoholic hepatitis pattern. Differential includes infectious hepatitis (acute hepatitis panel pending), hypotension, drug abuse, infarction or mass. Note the head CT scan of the abdomen in May without any concerning findings. Will place on CIWA protocol with p.r.n. Ativan in case of withdrawal, will provide aggressive hydration and supportive care. (2) Abdominal pain, right upper quadrant Acute R10.11 - RIGHT UPPER QUADRANT PAIN Comment/Plan: Patient complaining of severe right upper abdominal pain. Gallbladder ultrasound shows hepatic triad with signs of inflammation. No obstruction or evidence of mass lesion. Likely due to his acute hepatitis. Note the patient had laparoscopic cholecystectomy here in 2014. Will obtain CT scan of the abdomen pelvis with IV and p.o. contrast to rule out mass lesion, infectious process, intestinal obstruction, etc. (3) Thrombocytopenia Acute D69.6 - THROMBOCYTOPENIA, UNSPECIFIED (4) DM w/o complication type II Chronic Qualifiers: Diabetes mellitus usp insulin use: without terminal supervisor use Qualified Code(s): E11.9 - Type 2 diabetes mellitus without complications Comment/Plan: Patient does not seem to be a currently on any oral diabetes medications. Check fingerstick blood glucose q.a.c. and HS, check hemoglobin A1c and add sliding scale insulin as well.
[2016-08-06] MEDS: NS 1,000 ML IV SCH (11:05)
[2016-08-06] MEDS ORDERED: VITAMINS,PRENATAL TABLET PO SCH (12:00)
[2016-08-06] MEDS ORDERED: THIAMINE 100 MG TAB PO SCH (12:00)
--- NOTE | 2016-08-06 12:14 | PCM.GIPROG ---
Progress Note (GI) Chief Complaint: The liver function tests are improving gradually and so is the jaundice. He still has abdominal pain- subjective symptoms out with the objective findings. He denies having any significant nausea or vomiting. He has been tolerating lactulose. The ammonia is gradually coming down. There are no signs or symptoms of any active bleeding. - Physical Exam Vital Signs: Temperature: 99.9 F (08/06/16 08:58) HR: 87 (08/06/16 08:58) RR: 20 (08/06/16 08:58) BP: 141/76 (08/06/16 08:58) Pulse Ox: 97 (08/06/16 08:58) General: Alert, Oriented x3, Cooperative, No acute distress HEENT: Normal, Other (No Jaundice). negative: Pallor Cardiovascular: Normal S1, Normal S2, Other (No S3 or S4.). negative: No murmurs Gastrointestinal: Soft, Bowel Sounds (Normal), Tender, Guarding (voluanrty), Hepatosplenomegaly, Other (No ascites.) Extremities: Normal pulses. negative: Swelling, Edema Skin: Warm,Dry and Intact Neurological: Normal speech, Other (No focal neurologic deficits.) Psych/Mental Status: Normal Affect, Cooperative Result Diagrams: 08/06/16 09:04 08/06/16 09:04 - Impression and Plan (1) Liver cirrhosis, alcoholic Acute K70.30 - ALCOHOLIC CIRRHOSIS OF LIVER WITHOUT ASCITES without ascites K70.30 - Alcoholic cirrhosis of liver without ascites (2) Hepatic encephalopathy Acute K72.90 - HEPATIC FAILURE, UNSPECIFIED WITHOUT COMA (3) DM w/o complication type II Chronic without fpc use E11.9 - Type 2 diabetes mellitus without complications Comment: Patient does not seem to be a currently on any oral diabetes medications. Check fingerstick blood glucose q.a.c. and HS, check hemoglobin A1c and add sliding scale insulin as well. (4) Obstructive sleep apnea Suspected G47.33 - OBSTRUCTIVE SLEEP APNEA (ADULT) (PEDIATRIC) Comment: Patient reports snoring and waking up q 15 min at home. Patient is obese. Has very large tonsils and large neck circumference. Plan: will order oxgyen, incentive spirometry. Recommend that primary care provider consider testing for NIRU as an outpatient. (5) Chronic abdominal pain Acute R10.9 - UNSPECIFIED ABDOMINAL PAIN; G89.29 - OTHER CHRONIC PAIN Plan: 1. continue to monitor liver function tests. The gradually coming down. 2. Stop drinking all alcohol 3. Ambulate 4. I have again explained to the patient that we would like to hold off on any pain medications as there may be detrimental. 5. Will follow along. Addendum: Alpha-fetoprotein was normal. Still as per radiology's recommendations, he would need an MRI of the liver as an outpatient. We need to set up an appointment for MRI of the liver at discharge so that he does not fall through the cracks and may not show up as an outpatient for follow-up visits. He has assured me that he would follow up as an outpatient on a regular basis.
--- NOTE | 2016-08-06 16:05 | PCM.DCS92 ---
- Final/Secondary Discharge Diagnosis (1) Acute hepatitis Acute B17.9 - ACUTE VIRAL HEPATITIS, UNSPECIFIED Present on Admission: Yes Comment: Etiology is unclear. Tylenol level is negative. However urine drug screeen is positive for multiple substances of abuse. Not clearly alcoholic hepatitis pattern. Differential includes infectious hepatitis (acute hepatitis panel pending), hypotension, drug abuse, infarction or mass. (Note that he had CT scan of the abdomen in May without any concerning findings. ) Feel that drug/alcohol abuse is most likely etiology. Will place on CIWA protocol with p.r.n. Ativan in case of withdrawal, will provide aggressive hydration and supportive care. (2) Abdominal pain, right upper quadrant Acute R10.11 - RIGHT UPPER QUADRANT PAIN Present on Admission: Yes Comment: Patient complaining of severe right upper abdominal pain. Gallbladder ultrasound shows hepatic triad with signs of inflammation. No obstruction or evidence of mass lesion. Likely due to his acute hepatitis. Note the patient had laparoscopic cholecystectomy here in 2014. Most likely due to his substance abuse. Drug screen is positive for multiple illegal substances. (3) Thrombocytopenia Acute D69.6 - THROMBOCYTOPENIA, UNSPECIFIED Present on Admission: Yes Comment: gradually improving - up to 90K now (4) DM w/o complication type II Chronic Present on Admission: Yes without bed bug exterminator use E11.9 - Type 2 diabetes mellitus without complications Comment: Patient does not seem to be a currently on any oral diabetes medications. Check fingerstick blood glucose q.a.c. and HS, check hemoglobin A1c and add sliding scale insulin as well. Advised of need for change in lifestyle, diet and exercise routine. Encouraged close follow-up with PCP. (5) Substance abuse Acute F19.10 - OTHER PSYCHOACTIVE SUBSTANCE ABUSE, UNCOMPLICATED Present on Admission: Yes Comment: Counselled on need for lifestyle changes, patient is HCV +. LFT's are gradually improving, should continue to do so if he continues to abstain from illegal substances and drinks plenty of water. Avoid friends /associates who use illegal drugs. Assistance for addiction is available through [facility]. (6) Tobacco abuse disorder Chronic Z72.0 - TOBACCO USE Present on Admission: Yes Comment: Counselled on importance of smoking cessation. Encouraged alternative form of nicotine: patch, gum, or vapor. (7) Hep C w/o coma, chronic Chronic B18.2 - CHRONIC VIRAL HEPATITIS C Present on Admission: Yes Comment: Patient found to have + serology for HCV. Informed of same. Discharge Disposition: Home Discharge Condition: Stable Cognitive Discharge Status: Unimpaired Fuctional Discharge Status: Independent Physician Follow up/Referrals: Chase Briscoe MD [Primary Care Provider] - One Week Chencho Morataya MD [Staff Provider No Admit] - 3-4 Days New Prescriptions: Cephalexin Monohydrate [Keflex] 500 mg PO BID #20 cap Lactulose [Cephulac] 20 gm PO BID #1800 udc Metoprolol Tartrate [Lopressor] 25 mg PO BID #60 tablet Rifaximin [Xifaxan] 550 mg PO BID #60 tablet Thiamine [Thiamine, Vitamin B-1] 100 mg PO DAILY@1200 #100 tablet Vitamins, [ Vitamin] 1 tab PO DAILY@1200 #100 tablet Discharge Home Medication List Alprazolam [Xanax] 1 mg PO TID 11/15/14 [History Confirmed 08/03/16 Last Taken 08/02/16] Omeprazole [Prilosec] 40 mg PO BID 11/15/14 [History Confirmed 08/03/16 Last Taken 08/02/16] Pregabalin [Lyrica] 300 mg PO TID 12/21/14 [History Confirmed 08/03/16 Last Taken 08/03/16 01:00] Buprenorphine HCl/Naloxone HCl [Suboxone SL Film (8 mg/2 mg)] 1 film SL TID [History Confirmed 08/03/16 Last Taken 08/02/16] Acetaminophen Ex Str Tablet [TYLENOL EXTRA STRENGTH Tablet] 1,500 mg PO .PRN PRN 08/03/16 [History Confirmed 08/03/16 Last Taken 08/03/16 01:00] Lactulose [Cephulac] 20 gm PO BID #1800 udc 08/06/16 [Rx Last Taken Unknown] Metoprolol Tartrate [Lopressor] 25 mg PO BID #60 tablet 08/06/16 [Rx Last Taken Unknown] Nicotine [Nicoderm] 21 mg TOP Q24H #30 pat 08/06/16 [Rx Last Taken Unknown] Rifaximin [Xifaxan] 550 mg PO BID #60 tablet 08/06/16 [Rx Last Taken Unknown] Thiamine [Thiamine, Vitamin B-1] 100 mg PO DAILY@1200 #100 tablet 08/06/16 [Rx Last Taken Unknown] Vitamins, [ Vitamin] 1 tab PO DAILY@1200 #100 tablet 08/06/16 [ Rx Last Taken Unknown] O2 Device: Room Air Additional Instructions: finger guard to L index finger x 2 weeks; Keflex for infection; keep wound clean and dry Diet at Discharge: Heart Healthy, Low Salt, Diabetic, 1800 Calorie Activity: As Tolerated Call Office For: Worsening Symptoms Discontinue use of:: Alcohol, All Illegal Substances, All Types of Tobacco - DC Summary Notes Hospital Course Note:: Discharge summary on patient named NANI ALCAZAR admitted to [facility] on 08/03/16 by Keon Solares MD. Date of discharge is []. This is a 35-year-old male with a long history of drug and alcohol abuse who was being admitted to the hospital this morning due to abdominal pain and acute hepatitis. The patient tells me that he has been having abdominal pain for the last day and half, it is in the right upper quadrant, sharp and dull at the same time, without any aggravating or alleviating factors. It does not radiate. Initially the patient denies any IV drug use or any use of illicit substances, but then when I confronted him about his urine tox screen, admits that he was at a [employer] for nights ago, where he took many different types of drugs. In fact, he was taken to the [facility] and [place] that evening due to accidental overdose. The patient vehemently denies use of IV drugs, as he says he does not like needles. He says he has never had pain in his abdomen like this ever before. Denies any fevers or chills, cough, shortness of breath. He has some associated nausea but no vomiting. He has been having regular bowel movements, without any blood in the stool. He was found to have acute hepatitis with a positive urine drug screen for benzodiazepines, oxycodone, MDMA, methamphetamines, and amphetamines. His Tylenol level and alcohol levels were negative. Etiology of his hepatitis is unclear. Not clearly an alcoholic hepatitis pattern. Differential includes infectious hepatitis (acute hepatitis panel pending), hypotension, drug abuse, infarction or mass. (Note that he had CT scan of the abdomen in May without any concerning findings.) Feel that drug/alcohol abuse is most likely etiology. Patient complaining of severe right upper abdominal pain. Gallbladder ultrasound shows hepatic triad with signs of inflammation. No obstruction or evidence of mass lesion. Likely due to his acute hepatitis. Note the patient had laparoscopic cholecystectomy here in 2014. He was also found to be a diabetic, but did not appear to be taking any medications for this. He was started on a clear liquid diet while he was here, counselled on need for lifestyle changes; the patient is HCV +. His LFT's are gradually improving, and should continue to do so if he continues to abstain from illegal substances and drinks plenty of water. Avoid friends /associates who use illegal drugs. Assistance for addiction is available through [facility]. The patient has been noted to have major depression and substance abuse problems in the past, with at least two psychiatric hospitalizations for this. He has had suicidal ideations in the past, but denies such at this time. His has been advised of his clinical findings and has agreed to look after him. He will be discharged home today, to continue on a clear liquid diet, abstain from controlled (mind-altering) substances and follow-up with Dr. Morataya in 3-4 days. Total Time: 35 min Code: 82785 (>30min.) - Physical Exam Vital Signs: Last Vital Signs Temp 98.9 F 08/06/16 13:22 Pulse 81 08/06/16 13:22 Resp 20 08/06/16 13:22 BP 141/83 08/06/16 13:22 Pulse Ox 95 08/06/16 13:22 Oxygen Pulse Oxygen Saturation 95 O2 Device Room Air Oxygen Flow Rate Fraction of Inspired Oxygen ( FIO2) Constitutional: No apparent distress, Alert Oriented to: Time, Person, Place - HEENT Head: Normal (normocephalic,atraumatic, trachea midline) Eye: Normal (EOMI, Sclera white) Oropharynx: Normal (moist), Exudate ENT EAC: Normal TMJ: Normal Nose: No Symptoms Reported (without discharge or bleeding) - Respiratory/Cardiovascular Respiratory: Normal - CTA (Clear to auscultation bilaterally, no wheezing,rales or rhonchi. No use of accessory muscles) Cardiovascular: Normal - GI Auscultation: Normal Palpation: Normal Tenderness: Guarding, RUQ, Epigastric. negative: Rebound, Rigidity Hatch's Sign: Negative Rectal Exam: Deferred - Musculoskeletal Back: Normal Extremities: Normal (normal tone, no cyanosis or edema) - Integumentary Skin: Warm, Dry Lymphatics: Normal - Neurologic Memory Impaired: Normal, Short-term Cranial Nerve: Normal Cerebellar: Normal Mood Description: Normal Thought: Coherent Perception: Normal - Other Exam Other Exam Findings: PATIENT HAS BEEN UP IN BATHROOM SMOKING CIGARETTE. PATIENT REMINDED THIS IS A NON-SMOKING FACILITY. NOW FAMILY/FRIENDS ARE BRINGING ALCOHOL INTO THE ROOM. THEY HAVE BEEN ADVISED THIS IS NOT ALLOWED ON HOSPITAL CAMPUS.
[2016-08-06 16:19] VITALS: BP 138/86; PULSE 83; TEMP 99.1
== END 2016-08-06 17:19 | disposition home or self-care (01) | DRG 442 ==
LOC: ED 06:53 → EDINP 11:15 → PCU 12:46 → MPS3 08-04 15:16
PROVIDERS: ADMIT Internal Medicine; ATTEND Family Medicine
DX: B17.9 Acute viral hepatitis, unspecified (principal); K76.6 Portal hypertension; D69.6 Thrombocytopenia, unspecified; K72.90 Hepatic failure, unspecified without coma; Z68.41 Body mass index [BMI] 40.0-44.9, adult; E11.9 Type 2 diabetes mellitus without complications; I10 Essential (primary) hypertension; K70.30 Alcoholic cirrhosis of liver without ascites; D73.2 Chronic congestive splenomegaly; F19.10 Other psychoactive substance abuse, uncomplicated; F17.210 Nicotine dependence, cigarettes, uncomplicated; B18.2 Chronic viral hepatitis C; K21.9 Gastro-esophageal reflux disease without esophagitis; F41.9 Anxiety disorder, unspecified; Z88.0 Allergy status to penicillin; Z88.8 Allergy status to other drugs, medicaments and biological substances; Z88.5 Allergy status to narcotic agent; Z79.899 Other long term (current) drug therapy; G47.33 Obstructive sleep apnea (adult) (pediatric); E66.9 Obesity, unspecified; Z23 Encounter for immunization
CPT/HCPCS: 36415; 74177; 76705; 80053; 80307; 80329; 81001; 82105; 82140; 82962; 83036; 83690; 85007; 85025; 85027; 85610; 85730; 86706; 86803; 90471; 90732; 96361; 96372; 96374; 96375; 99284; 99406; A9153; A9698; G0237; J0694; J1170; J1650; J2405; J2550; J3411; J3490; J7060